=== PATIENT | female | born 1995 | race Caucasian/White ===

== ENCOUNTER 2019-02-15 18:17 | Emergency (ER) | payer OTHER ==
--- NOTE | 2019-02-15 20:01 | ER Document Report ---
ED Medical Screen (RME) - General Chief Complaint: Abdominal Pain Stated Complaint: VAGINAL BLEEDING Time Seen by Provider: 02/15/19 19:58 Mode of Arrival: Ambulatory Information source: Patient Notes: Patient states that she is with last menstrual period around January 04. Patient complains of cramping and vaginal bleeding that started today. Patient denies any urinary symptoms. Patient G2, P1. I have greeted and performed a rapid initial assessment of this patient. A comprehensive ED assessment and evaluation of the patient, analysis of test results and completion of the medical decision making process will be conducted by additional ED providers. TRAVEL OUTSIDE OF THE [place] IN LAST 30 DAYS: No - Related Data Allergies/Adverse Reactions: No Known Allergies Allergy (Unverified 02/15/19 18:29) Past Medical History - Social History Frequency of alcohol use: None Drug Abuse: None Renal/ Medical History: Denies: Hx Peritoneal Dialysis Past Surgical History: Reports: Hx Oral Surgery Physical Exam - Vital signs Vitals: Temp Pulse Resp BP Pulse Ox 98.3 F 61 18 117/76 100 02/15/19 18:50 02/15/19 18:50 02/15/19 18:50 02/15/19 18:50 02/15/19 18:50 - Abdominal Tenderness: Tender - Lower pelvic Course - Vital Signs Vital signs: Temp Pulse Resp BP Pulse Ox 98.3 F 61 18 117/76 100 02/15/19 18:50 02/15/19 18:50 02/15/19 18:50 02/15/19 18:50 02/15/19 18:50
[2019-02-15 21:08] LABS: APPEARANCE,URINE CLEAR; BILIRUBIN,URINE NEGATIVE (NEGATIVE); COLOR,URINE STRAW; GLUCOSE, URINE NEGATIVE (NEGATIVE); KETONES,URINE NEGATIVE (NEGATIVE); LEUKOCYTE ESTERASE,URINE NEGATIVE (NEGATIVE); NITRITE,URINE NEGATIVE (NEGATIVE); PROTEIN,URINE NEGATIVE (NEGATIVE); URINE SPECIFIC GRAVITY 1.011; UROBILINOGEN,URINE NEGATIVE mg/dL (<2.0)
[2019-02-15 21:23] LABS: ABSOLUTE EOSINOPHILS # (AUTO) 0.3 10^3/uL (0.0-0.6); ABSOLUTE LYMPHOCYTES (AUTO) 2.5 10^3/uL (0.5-4.7); ABSOLUTE MONOCYTES (AUTO) 0.5 10^3/uL (0.1-1.4); ABSOLUTE NEUT (AUTO) 4.4 10^3/uL (1.7-8.2); BASOPHILS % (AUTO) 0.6 % (0-2); EOSINOPHILS % (AUTO) 3.2 % (0-6); HEMATOCRIT 39.4 % (36.0-47.0); HEMOGLOBIN 13.5 g/dL (12.0-15.5); LYMPHOCYTES % (AUTO) 32.8 % (13-45); MEAN CORPUSCULAR HGB CONC 34.3 g/dL (32.0-36.0); MEAN CORPUSCULAR VOLUME 87 fl (80-97); PLATELET COUNT 197 10^3/uL (150-450); RED BLOOD COUNT 4.51 10^6/uL (3.72-5.28); RED CELL DISTRIBUTION WIDTH 14.2 % (11.5-14.0); SEGMENTED NEUTROPHILS % (AUTO) 57.4 % (42-78); TOTAL CELLS COUNTED % (AUTO) 100 %; WHITE BLOOD COUNT 7.7 10^3/uL (4.0-10.5)
--- NOTE | 2019-02-15 21:25 | RADIOLOGY REPORT (SQ) ---
EXAM DESCRIPTION: US TRANSVAGINAL COMPLETED DATE/TME: 02/15/2019 20:00 CLINICAL HISTORY: 23 years Female pelvic pain, bleeding COMPARISON: None. TECHNIQUE: Transvaginal duplex imaging performed to evaluate the pelvis. FINDINGS: Uterus measures 9.3 x 5.5 cm. Endometrial stripe measures 1.2 cm. Right ovary measures 4 x 2 cm with normal flow. Left ovary is enlarged measuring 7.7 x 5.4 x 5.4 cm with normal blood flow. There is a left ovarian cyst measuring 4 x 5.3 x 5.3 cm. No IUP is noted at this time. Trace fluid in the pelvis. IMPRESSION: No IUP is identified at this time. Findings are consistent with of uncertain location. Recommend follow-up in one week and correlation with beta-hCG 5.3 cm left ovarian cyst with some internal echoes.
--- NOTE | 2019-02-16 00:38 | ER Document Report ---
ED General - General Chief Complaint: Abdominal Pain Stated Complaint: VAGINAL BLEEDING Time Seen by Provider: 02/15/19 19:58 Primary Care Provider: [facility] [Provider Group] - Follow up in 3-5 days [facility] [NO LOCAL MD] - Follow up tomorrow (call for appointment ) Mode of Arrival: Ambulatory Notes: Patient is a 23-year-old female that presents to the emergency department for chief complaint of positive hCG testing, pelvic cramping, and vaginal bleeding. Patient states that she took a test 3 or 4 days ago, and was positive, and has been having some abdominal cramping for the past few days, and started having bleeding yesterday and today. She is not sure what is going on, she is not sure if she is or if she is having a period, her last menstrual period was on January 04. She is . She denies having any fevers, chills, dysuria, hematuria, vaginal discharge, only the bleeding noted. She currently rates her pain as a 2 out of 10 describes it as menstrual cramping, mild in nature. Past Medical History: Denies chronic medical conditions Past Surgical History: Denies surgical history Social History: Former smoker, denies alcohol or drug use. Family History: Reviewed and noncontributory for presenting illness Allergies: Reviewed, see documented allergy list. REVIEW OF SYSTEMS: Other than noted above, the 12 point review of systems was reviewed with the patient and were negative, all pertinent findings are included in the HPI. PHYSICAL EXAMINATION: Vital signs reviewed, nursing noted reviewed. GENERAL: Well-appearing, well-nourished and in no acute distress. HEAD: Atraumatic, normocephalic. EYES: Eyes appear normal, extraocular movements intact, sclera anicteric, conjunctiva are normal. ENT: nares patent, oropharynx clear without exudates. Moist mucous membranes. NECK: Normal range of motion, supple without lymphadenopathy LUNGS: Breath sounds clear to auscultation bilaterally and equal. No wheezes rales or rhonchi. HEART: Regular rate and rhythm without murmurs ABDOMEN: Soft, nontender, normoactive bowel sounds. No rebound, guarding, or rigidity. No masses appreciated. EXTREMITIES: Nontender, good range of motion, no pitting or edema. NEUROLOGICAL: No focal neurological deficits. Moves all extremities spontaneously Motor and sensory grossly intact on exam. PSYCH: Normal mood, normal affect. SKIN: Warm, Dry, normal turgor, no rashes or lesions noted on exposed skin TRAVEL OUTSIDE OF THE [place] IN LAST 30 DAYS: No - Related Data Allergies/Adverse Reactions: No Known Allergies Allergy (Unverified 02/15/19 18:29) Past Medical History - General Information source: Patient - Social History Smoking Status: Former Smoker Frequency of alcohol use: None Drug Abuse: None Family History: Reviewed & Not Pertinent Patient has suicidal ideation: No Patient has homicidal ideation: No Renal/ Medical History: Denies: Hx Peritoneal Dialysis Past Surgical History: Reports: Hx Oral Surgery Physical Exam - Vital signs Vitals: Temp Pulse Resp BP Pulse Ox 98.3 F 61 18 117/76 100 02/15/19 18:50 02/15/19 18:50 02/15/19 18:50 02/15/19 18:50 02/15/19 18:50 Course - Re-evaluation Re-evalutation: Patient seen and examined vital signs reviewed. Laboratory data and/or imaging were ordered as appropriate for the patient's presenting symptoms and complaint, with consideration of any critical or life threatening conditions that may be associated with their obtained history and exam as noted above. Results were reviewed when available and demonstrated ultrasound did not reveal an intrauterine , or extrauterine , her hCG was rather low at 54, this is likely a miscarriage, but cannot be proven definitively, will need repeat hCG testing, versus ultrasound in 1 week, or hCG testing in 2 days, patient was agreeable to plan of care to follow-up with [facility], the health department or having to return to the emergency department Evaluation was most consistent with vaginal bleeding in early , possible miscarriage. Results were discussed with the patient at this point, after careful consideration I feel that that patient can be discharged from the emergency department, the patient was educated treatments and reasons to return to the emergency department based on their presumed diagnosis as noted above, they were advised to followup with a primary care physician in 2-3 days. Patient was agreeable to plan of care. *Note is created using voice recognition software and may contain spelling, syntax or grammatical errors. Laboratory 02/15/19 02/15/19 02/15/19 20:19 21:12 21:12 WBC 7.7 RBC 4.51 Hgb 13.5 Hct 39.4 MCV 87 MCH 30.0 MCHC 34.3 RDW 14.2 H Plt Count 197 Seg Neutrophils % 57.4 Lymphocytes % 32.8 Monocytes % 6.0 Eosinophils % 3.2 Basophils % 0.6 Absolute Neutrophils 4.4 Absolute Lymphocytes 2.5 Absolute Monocytes 0.5 Absolute Eosinophils 0.3 Absolute Basophils 0.0 Beta HCG, Quant 54.58 H Total Beta HCG POSITIVE Urine Color STRAW Urine Appearance CLEAR Urine pH 5.0 Ur Specific [place] 1.011 Urine Protein NEGATIVE Urine Glucose (UA) NEGATIVE Urine Ketones NEGATIVE Urine Blood MODERATE H Urine Nitrite NEGATIVE Urine Bilirubin NEGATIVE Urine Urobilinogen NEGATIVE Ur Leukocyte Esterase NEGATIVE Urine WBC (Auto) 0 Urine RBC (Auto) 1 Urine Mucus (Auto) RARE Urine Ascorbic Acid NEGATIVE Blood Type Rhogam Indicated 02/15/19 21:12 WBC RBC Hgb Hct MCV MCH MCHC RDW Plt Count Seg Neutrophils % Lymphocytes % Monocytes % Eosinophils % Basophils % Absolute Neutrophils Absolute Lymphocytes Absolute Monocytes Absolute Eosinophils Absolute Basophils Beta HCG, Quant Total Beta HCG Urine Color Urine Appearance Urine pH Ur Specific [place] Urine Protein Urine Glucose (UA) Urine Ketones Urine Blood Urine Nitrite Urine Bilirubin Urine Urobilinogen Ur Leukocyte Esterase Urine WBC (Auto) Urine RBC (Auto) Urine Mucus (Auto) Urine Ascorbic Acid Blood Type O POSITIVE Rhogam Indicated RHOGAM NOT INDICATED Obstetrics Ultrasound 02/15/19 20:00 IMPRESSION: No IUP is identified at this time. Findings are consistent with of uncertain location. Recommend follow-up in one week and correlation with beta-hCG 5.3 cm left ovarian cyst with some internal echoes. - Vital Signs Vital signs: Temp Pulse Resp BP Pulse Ox 98.1 F 60 18 111/67 100 02/16/19 00:46 02/16/19 00:46 02/16/19 00:46 02/16/19 00:46 02/16/19 00:46 - Laboratory Result Diagrams: 02/15/19 21:12 Laboratory results interpreted by me: 02/15/19 02/15/19 02/15/19 20: 21:12 21:12 RDW 14.2 H Beta HCG, Quant 54.58 H Urine Blood MODERATE H Discharge - Discharge Clinical Impression: Vaginal bleeding affecting early Condition: Stable Disposition: HOME, SELF-CARE Instructions: Bleeding During Early ([facility]) Additional Instructions: It is possible that she had a miscarriage today, however it is also possible that this is too early in to determine whether this was a miscarriage as well, you will need repeat blood work in 2 days, or repeat ultrasound in 1 week. Please follow-up with either the health department, the women's health group, and if absolutely necessary can come back to the emergency department to have a repeat blood test. Referrals: [facility] [Provider Group] - [facility] - Follow up tomorrow (call for appointment )
[2019-02-16 00:47] VITALS: BP 111/67
== END 2019-02-16 00:45 | disposition home or self-care (01) ==
LOC: ER 18:17
DX: O20.9 Hemorrhage in early pregnancy, unspecified (principal); O34.80 Maternal care for other abnormalities of pelvic organs, unspecified trimester; N83.202 Unspecified ovarian cyst, left side; R10.2 Pelvic and perineal pain
CPT/HCPCS: 36415; 76817; 81001; 84702; 85025; 86900; 86901; 99284